=== PATIENT | female | born 1985 | race Caucasian/White ===

== ENCOUNTER 2017-12-13 13:43 | Emergency (ER) | payer OTHER ==
[2017-12-13] MEDS ORDERED: KETOROLAC 60 MG/2 ML VIAL IM STA (14:47)
[2017-12-13] MEDS ORDERED: DEXAMETHASONE 10 MG/ML VIAL PO STA (14:48)
--- NOTE | 2017-12-13 14:52 | ED Physician Documentation ---
History of Present Illness - Stated complaint Stated Complaint: LOWER BACK PAIN - Chief complaint Chief Complaint: Back Pain - History obtained from History obtained from: Patient - History of Present Illness Timing: Last night Pain level max: 8 Pain level now: 6 Improved by: standing Worsened by: sitting - Additonal information Additional information: Patient states L back pain since last night. no trauma. Points to L SI joint. Radiates down L leg. No numbness, tingling, bowel or bladder incontinence. no IVDA. Review of Systems Constitutional: denies: Fever, Chills Cardiac: denies: Chest pain / pressure Respiratory: denies: Cough GI: denies: Abdominal Pain, Nausea, Vomiting, Diarrhea : reports: LMP (11/23/17). denies: Dysuria, Frequency, Unable to Void, Now EGA Skin: denies: Rash Musculoskeletal: denies: Neck pain Neurologic: denies: Focal weakness, Numbness, Confused, Altered mental status PD PAST MEDICAL HISTORY - Past Medical History Past Medical History: No - Past Surgical History Past Surgical History: No - Present Medications Home Medications: Ambulatory Orders Medication Instructions Recorded Confirmed Hydrocodone/Acetaminophen 1 - 2 each PO Q6H PRN #14 tablet 12/13/17 [Hydrocodon-Acetaminophen 5-325] Meloxicam [Mobic] 7.5 mg PO BID PRN #20 tablet 12/13/17 - Allergies Allergies/Adverse Reactions: Allergies Allergy/AdvReac Type Severity Reaction Status Date / Time No Known Drug Allergies Allergy Verified 12/13/17 13:57 - Social History Does the pt smoke?: No Smoking Status: Never smoker Does the pt drink ETOH?: Yes ETOH Use: Liquor Does the pt have substance abuse?: No - Immunizations Immunizations are current?: Yes - POLST Patient has POLST: No PD ED PE NORMAL - Vitals Vital signs reviewed: Yes - General General: Alert and oriented X 3, No acute distress - HEENT HEENT: Moist mucous membranes - Neck Neck: Supple, no meningeal sign - Back Back: No spinal TTP, Other (TTP over the L SI joint, Pain with internal rotation of the L hip and stretching the L hip across the body. NVI. No swelling. no calf tenderness. ) - Derm Derm: Warm and dry, No rash - Extremities Extremities: Other (normal bilateral lower extremity patellar and ankle jerk reflexes. Normal great toe extension bilaterally) - Neuro Neuro: Alert and oriented X 3, No motor deficit, No sensory deficit - Psych Psych: Normal mood, Normal affect Results - Vitals Vitals: Vital Signs - 24 hr 12/13/17 12/13/17 13:55 15:15 Temperature 36.5 C 37.2 C Heart Rate 85 86 Respiratory 16 20 Rate Blood Pressure 131/86 H 128/86 H O2 Saturation 100 98 Oxygen O2 Source Room air PD MEDICAL DECISION MAKING - ED course Complexity details: considered differential (no cauda equina, no spinal epidural abscess, no fracture, no aortic dissection or evidence of aneursym rupture), d/w patient ED course: Patient is a 31-year-old female who presents to the emergency department with what sounds like sciatica radiating down the left leg. No urinary incontinence. Will trial on pain medication for home. Given steroids here. Will continue supportive care and follow-up with her doctor. No evidence of cauda equina, epidural abscess. No evidence of fracture. Patient counseled regarding signs and symptoms for which I believe and urgent re-evaluation would be necessary. Patient with good understanding of and agreement to plan and is comfortable going home at this time This document was made in part using voice recognition software. While efforts are made to proofread this document, sound alike and grammatical errors may occur. Departure - Departure Disposition: 01 Home, Self Care Clinical Impression: SI (sacroiliac) joint inflammation Condition: Good Instructions: ED Sciatica Follow-Up: your,doctor in 1 week [Other] Prescriptions: Hydrocodone/Acetaminophen [Hydrocodon-Acetaminophen 5-325] 1 - 2 each PO Q6H PRN #14 tablet PRN Reason: pain Meloxicam [Mobic] 7.5 mg PO BID PRN #20 tablet PRN Reason: Pain Comments: This should improve over the next 2 or 3 days. Return if you worsen. Do not drink alcohol or drive while on narcotic pain medicine. Note that many narcotic pain relievers also contain tylenol/acetaminophen. Please ensure that your total dose of acetaminophen from all sources does not exceed 3 grams (3000mg) per day. You may constipated on this medication, take a stool softener such as "Colace" twice a day while you are on it. Also recommend a [id number] laxative such as senna or MiraLAX any day that you do not have a bowel movement. If you received narcotic pain medication in the emergency department, do not drive or operate machinery for the next 24 hours. Forms: Activity restrictions Discharge Date/Time: 12/13/17 15:15
[2017-12-13 15:16] VITALS: BP 128/86
== END 2017-12-13 15:15 | disposition home or self-care (01) ==
LOC: ED 13:43
DX: M46.1 Sacroiliitis, not elsewhere classified (principal)
CPT/HCPCS: 96374; 99283